=== PATIENT | male | born 2000 | race Caucasian/White ===

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

== ENCOUNTER → 2018-07-14 | Outpatient (CLI) | payer OTHER ==
[2018-07-14 15:13] LABS: HCT 42.4 % (39.0-53.0); HGB 14.3 gm/dL (13.0-17.5); MCH 29.8 pg (25.0-35.0); MCHC 33.7 g/dL (31.0-37.0); MCV 88.4 fL (80.0-100.0); Mean Platelet Volume 6.5; Platelet Count 205 k/uL (150-450); RDW 11.8 % (11.5-15.5); WBC 4.5 k/uL (4.0-11.0)
[2018-07-14 15:30] LABS: ALT 25 U/L (21-72); AST 25 U/L (17-59); Albumin 4.7 g/dL (3.5-5.0); Alkaline Phosphatase 91 U/L (38-126); Anion Gap 8 mmol/L; Blood Urea Nitrogen 11 mg/dL (9-20); Calcium 9.5 mg/dL (8.4-10.2); Carbon Dioxide 27 mmol/L (22-30); Chloride 105 mmol/L (98-107); Cholesterol 150 mg/dL (<200); Glucose 84 mg/dL (74-99); HDL Cholesterol 57 mg/dL (40-60); LDL Cholesterol,Calculated 82 mg/dL (0-99); Potassium 4.1 mmol/L (3.5-5.1); Sodium 140 mmol/L (137-145); Total Bilirubin 0.7 mg/dL (0.2-1.3); Total Protein 7.8 g/dL (6.3-8.2); Triglycerides 54 mg/dL (<150)
[2018-07-14 15:46] LABS: T4, Free (Free Thyroxine) 1.04 ng/dL (0.78-2.19)
== END | disposition home or self-care (01) ==
LOC: LABWHC1 14:37
PROVIDERS: ATTEND Internal Medicine
DX: Z00.00 Encounter for general adult medical examination without abnormal findings (principal)
CPT/HCPCS: 36415; 80053; 80061; 84439; 84443; 85027

== ENCOUNTER 2023-03-13 22:46 | Emergency (ER) | payer OTHER ==
[2023-03-14] MEDS ORDERED: FLUORESCEIN STRIPS 1 MG STRIP BOTH EYES ONE (00:50)
[2023-03-14] MEDS ORDERED: PROPARACAINE 0.5% OPHTH DROPS 15 ML BTL BOTH EYES STA (00:50)
[2023-03-14] MEDS ORDERED: KETOROLAC 0.5% OPHTH DROPS 5 ML BTL BOTH EYES ONE (01:03)
--- NOTE | 2023-03-14 01:38 | ED ---
Eye Problem HPI - General Chief complaint: Eye Problems Stated complaint: Eye Pain Time Seen by Provider: 03/14/23 00:19 Source: patient, RN notes reviewed Mode of arrival: ambulatory Limitations: no limitations - History of Present Illness Initial comments: This is a 22-year-old male who presents to the emergency department for bilateral eye itching. States that he has problems with allergies, and this feels the same. However, his awjm-ija-achmrsa eyedrops have not been effective. Denies any pain, visual changes, drainage from the eyes, or trauma. Other than the itching, he has no complaints to the eyes. The left eye is currently worse than the right, however both eyes have been effected. He does wear contacts. Denies any fevers, chills, sore throat, cough, dyspnea, chest pain, palpitations, abdominal pain, nausea, vomiting, diarrhea, back pain, or headaches. MD chief complaint: other (Eye itching) Location: both eyes Eye Symptoms: itching - Related Data Previous Rx's Medication Instructions Recorded Azelastine HCl [Optivar 0.05% 1 drop BOTH EYES BID #6 ml 03/14/23 Oph Soln] Allergies Allergy/AdvReac Type Severity Reaction Status Date / Time No Known Allergies Allergy Verified 03/13/23 22:52 Review of Systems ROS Statement: Those systems with pertinent positive or pertinent negative responses have been documented in the HPI. ROS Other: All systems not noted in ROS Statement are negative. Past Medical History Past Medical History: No Reported History History of Any Multi-Drug Resistant Organisms: None Reported Past Surgical History: Orthopedic Surgery Additional Past Surgical History / Comment(s): lt arm Past Psychological History: No Psychological Hx Reported Smoking Status: Never smoker Past Alcohol Use History: None Reported Past Drug Use History: None Reported General Exam Limitations: no limitations General appearance: alert, in no apparent distress Head exam: Present: atraumatic, normocephalic, normal inspection Eye exam: Present: PERRL, EOMI, other (Mild bilateral conjunctival injection. There is no drainage or crusting of the eyelashes.). Absent: scleral icterus, periorbital swelling, periorbital tenderness Pupils: Present: normal accommodation Respiratory exam: Present: normal lung sounds bilaterally. Absent: respiratory distress, wheezes, rales, rhonchi, stridor Cardiovascular Exam: Present: regular rate, normal rhythm, normal heart sounds. Absent: systolic murmur, diastolic murmur, rubs, gallop, clicks Neurological exam: Present: alert, oriented X3, CN II-XII intact Psychiatric exam: Present: normal affect, normal mood Skin exam: Present: warm, dry, intact, normal color. Absent: rash Course Vital Signs 03/13/23 03/14/23 22:50 01:49 Temperature 98.1 F 98.0 F Pulse Rate 91 69 Respiratory 20 18 Rate Blood Pressure 144/85 119/66 O2 Sat by Pulse 100 99 Oximetry Medical Decision Making - Medical Decision Making This is a 22-year-old male who presents to the emergency department for eye itching. Was pt. sent in by a medical professional or institution? @ -No Did you speak to anyone other than the patient for history? @ -No Did you review nursing and triage notes? @ -Yes, and I agree, it is accurate with regards to the patient's symptoms. Were old charts reviewed? @ -No Differential Diagnosis? @ -Differential Eye Itching: Conjuncitivitis (viral, bacterial, allergic), corneal abrasion, foreign body, iritis, uveitis, keratitis, this is not meant to be an all-inclusive list. What testing was considered but not performed? (CT, X-rays, U/S, labs)? Why? @ -None What meds were considered but not given? Why? @ -None Did you discuss the management of the patient with other professionals? @ -No Did you reconcile home meds? @ -No Was smoking cessation discussed for >3mins.? @ -No Was critical care preformed (if so, how long)? @ -No Were there social determinants of health that impacted care today? How? (Homelessness, low income, unemployed, alcoholism, drug addiction, transportation, low edu. Level, literacy, decrease access to med. care, custodial, rehab)? @ -No Was there de-escalation of care discussed even if they declined? (Discuss DNR or withdrawal of care, Hospice)? @ -No What co-morbidities impacted this encounter? (DM, HTN, Smoking, COPD, CAD, Cancer, CVA, Hep., AIDS, mental health diagnosis, sleep apnea, morbid obesity)? @ -None Was patient admitted / discharged? @ -Discharged. Fluorescein staining was performed revealing no evidence of a corneal abrasion. Physical examination reveals mild bilateral conjunctival injection. That in combination with the itching is suggestive of an allergic conjunctivitis. Given that there is no improvement with his current [id number] eyedrops, prescription for Azelastine ophthalmic solution was provided with dosing instructions reviewed. I also suggested taking an [id number] antihistamine such as Claritin or Elsa. I also recommended he avoid wearing his contacts for now, as it'll likely contribute to further irritation. He was given information for ophthalmology follow-up in the event symptoms do not improve or worsen. Undiagnosed new problem with uncertain prognosis? @ -None Drug Therapy requiring intensive monitoring for toxicity (Heparin, Nitro, Insulin, Cardizem)? @ -None Were any procedures done? @ -None Diagnosis/symptom? @ -Allergic conjunctivitis Acute, or Chronic, or Acute on Chronic? @ -Acute Uncomplicated (without systemic symptoms) or Complicated (systemic symptoms)? @ -Uncomplicated Side effects of treatment? @ -None Exacerbation, Progression, or Severe Exacerbation] @ -Not applicable Poses a threat to life or bodily function? @ -No Return precautions reviewed in depth, the patient is instructed to return to the emergency department with any new, worsening, or concerning symptoms. Patient verbalized understanding. This case was discussed in detail with the attending ED physician, Dr. Amor. Presentation, findings, and treatment plan discussed in detail as well. Disposition Clinical Impression: Allergic conjunctivitis Disposition: HOME SELF-CARE Instructions (If sedation given, give patient instructions): Conjunctivitis (ED) Additional Instructions: Return to the emergency department with any new, worsening, or concerning symptoms. Use the prescription eyedrops, Optivar, as 1 drop in both eyes twice daily. You can use the ketorolac eyedrops as one drop in both eyes up to 4 ti mes daily as needed for itching or discomfort. Do not use the ketorolac eye drops longer than 1-2 weeks. Contact ophthalmology as listed below for a follow-up appointment and reevaluation of ongoing symptoms. Prescriptions: Azelastine HCl [Optivar 0.05% Ophth Soln] 1 drop BOTH EYES BID #6 ml Is patient prescribed a controlled substance at d/c from ED?: No Referrals: Porfirio Lechuga MD [Primary Care Provider] - 1-2 days Leigh Johnson MD [STAFF PHYSICIAN] - 1-2 days
[2023-03-14 01:50] VITALS: BP 119/66; PULSE 69; RESP 18; TEMP 98
== END 2023-03-14 01:50 | disposition home or self-care (01) ==
LOC: EC 22:46
DX: H10.13 Acute atopic conjunctivitis, bilateral (principal)
CPT/HCPCS: 99283